=== PATIENT | female | born 1965 | race Caucasian/White ===

== ENCOUNTER → 2019-01-19 | Outpatient (CLI) | payer BC ==
--- NOTE | 2019-01-19 14:22 | Diagnostic Imaging Report ---
Indication: Cough and shortness of breath. History of sarcoidosis. Exam: PA and lateral chest obtained at 2:08 hours p.m. 01/19/2019 and compared to 01/15/2008 Findings: The heart and mediastinal silhouette are normal in appearance. There is a new pacemaker device in place compared to the prior study, with right atrial and right ventricular leads. There is no pneumothorax or pleural fluid or focal infiltrate. There is minimal linear scarring versus atelectasis in the left base. Impression: Minimal linear scarring versus atelectasis in the left lung base. No focal infiltrate or pneumothorax or pleural fluid. Dictated by: Dictated on workstation # [id number]
== END ==
LOC: RAD FS 14:00
PROVIDERS: ATTEND Family Medicine
DX: R06.02 Shortness of breath (principal); R05 Cough; Z95.0 Presence of cardiac pacemaker; Z87.09 Personal history of other diseases of the respiratory system
CPT/HCPCS: 71046

== ENCOUNTER → 2020-08-19 | Outpatient (CLI) | payer BC ==
[~2020-08-19] MED LIST: CATHETER FLUSH 10 ML SYR IV PRN; HOLD METFORMIN - RECEIVED CONTRAST 20 ML VIAL IV SCH; IOHEXOL 350 MG/ML 100 ML (OMNIPAQUE 350) VIAL IV ONE; NS 100 ML (IVPB) BAG IV ONE
--- NOTE | 2020-08-19 11:44 | Diagnostic Imaging Report ---
PROCEDURE: CT chest with and without contrast. TECHNIQUE: Multiple contiguous axial images were obtained through the chest before and after administration of intravenous contrast. Auto Exposure Controls were utilized during the CT exam to meet ALARA standards for radiation dose reduction. INDICATION: Cough, sarcoidosis. Reportedly the patient has had a PET/CT exam which suggested an abnormality involving the thorax. Neither that exam nor the report from that study is available at this time. There are no previous CT chest examinations available for comparison. The plain film examination of the chest performed on 01/19/2019 noted a left-sided pacemaker and minimal scarring in the left lung base. There is no acute abnormality identified however. On this exam the heart size is within normal limits. Coronary artery calcifications are noted. The left-sided pacemaker is again evident and seems stable in position. The aorta is not abnormally dilated and there is no sign of dissection. The pulmonary arteries were not well opacified and consequently difficult to assess for a pulmonary embolus. There is no definite defect to suggest a pulmonary embolus. There is no mediastinal or hilar adenopathy. There are several low density nodules in each lobe of the thyroid. The largest of these is in the right lobe and measures 9 mm. These nodules may well be benign but ultrasound would be recommended to better characterize them unless there are previous studies available to demonstrate that these findings are stable. The lungs are clear. There is no sign of failure, pneumonia or a pleural effusion. The sections through the upper abdomen failed to show any sign of an acute abnormality. The bone windows are unremarkable for a fracture or for a destructive lesion. IMPRESSION: 1. There is no evidence for an acute cardiopulmonary abnormality. However, the pulmonary arteries were not fully opacified and difficult to assess for a pulmonary embolus. 2. If the previous PET/CT exam or the report from that study is available it would be helpful for comparison. 3. The small low density nodules in the thyroid gland are of uncertain etiology although most likely benign. Recommendations as above. Dictated by: Dictated on workstation # [id number]
== END ==
LOC: RAD FS 09:40
PROVIDERS: ATTEND Family Medicine
DX: D86.9 Sarcoidosis, unspecified (principal); E04.2 Nontoxic multinodular goiter; I25.10 Atherosclerotic heart disease of native coronary artery without angina pectoris; Z95.0 Presence of cardiac pacemaker
CPT/HCPCS: 71270

== ENCOUNTER → 2021-06-12 | Outpatient (CLI) | payer BC | LOC: LABNPT 08:07 | PROVIDERS: ATTEND Internal Medicine | DX: Z20.822 Contact with and (suspected) exposure to COVID-19 (principal) | CPT/HCPCS: 87635 ==

== ENCOUNTER → 2021-06-12 | Outpatient (CLI) | payer BC ==
--- NOTE | 2021-06-12 09:36 | Diagnostic Imaging Report ---
INDICATION: Pacemaker malfunction, undergoing pacemaker change next week. History of sarcoidosis. TECHNIQUE: Two view chest 9:20 AM CORRELATION STUDY: 01/19/2019 FINDINGS: The heart size, mediastinal configuration and pulmonary vasculature are within normal limits. Stable appearance left-sided dual-chamber pacemaker. The lungs are clear with no consolidating infiltrate. There is no significant pleural effusion or pneumothorax. Mildly advanced degenerative changes thoracic spine. IMPRESSION: 1. Negative for acute abnormality of the chest. Dictated by: Dictated on workstation # [id number]
== END ==
LOC: RAD 08:59
PROVIDERS: ATTEND Internal Medicine
DX: T82.110A Breakdown (mechanical) of cardiac electrode, initial encounter (principal); I44.2 Atrioventricular block, complete; D86.85 Sarcoid myocarditis
CPT/HCPCS: 71046